=== PATIENT | male | born 1950 | race Hispanic/Latino ===

== ENCOUNTER 2022-02-10 11:19 | Emergency (ER) | payer MEDICARE ==
[~2022-02-10] VITALS: Ht 172.7 cm; Wt 117.9 kg
[2022-02-10 12:10] LABS: BASOPHILS # (AUTO) 0.1 (0.0-0.1); BASOPHILS % 0.7 % (0.0-1.0); EOSINOPHILS # (AUTO) 0.3 (0.0-0.4); EOSINOPHILS % 3.5 % (0.0-6.0); HEMATOCRIT 39.4 % (38.2-49.6); HEMOGLOBIN 12.9 g/dL (14.0-18.0); LYMPHOCYTES # (AUTO) 1.4 (1.0-3.2); LYMPHOCYTES % 19.8 % (18.0-39.1); MEAN CORPUSCULAR HEMOGLOBIN 28.9 pg (28-32); MEAN CORPUSCULAR HGB CONC 32.7 g/dL (31-35); MEAN CORPUSCULAR VOLUME 88.3 fL (81-99); MONOCYTES # (AUTO) 0.5 (0.2-0.8); MONOCYTES % 6.8 % (4.4-11.3); NEUTROPHILS % 68.8 % (38.7-80.0); PLATELET COUNT 168 x10e3/uL (140-360); RED BLOOD COUNT 4.46 x10e6/uL (4.3-5.7); RED CELL DISTRIBUTION WIDTH 13.6 % (11.7-14.4)
[2022-02-10 12:29] LABS: INR 0.98; PROTHROMBIN TIME 13.9 seconds (11.9-14.5)
[2022-02-10 12:30] LABS: PARTIAL THROMBOPLASTIN TIME 30.4 seconds (23.8-35.5)
[2022-02-10 12:38] LABS: ALBUMIN 3.5 g/dL (3.5-5.0); ANION GAP 15.8 mmol/L (8-16); CALCIUM 9.3 mg/dL (8.4-10.2); CREATININE, SERUM 0.94 mg/dL (0.72-1.25); POTASSIUM 3.8 mmol/L (3.5-5.1)
[2022-02-10] MEDS ORDERED: ALBUTEROL/IPRATROPIUM 3 ML NEB NEB ONE (12:45)
[2022-02-10] MEDS ORDERED: METHYLPREDNISOLONE SOD SUCC 125 MG/2ML VIAL IV ONE (12:45)
[2022-02-10 13:12] LABS: CLARITY,URINE CLEAR (CLEAR); COLOR,URINE YELLOW (YELLOW)
[2022-02-10 13:13] LABS: KETONES,URINE NEGATIVE (NEGATIVE); LEUKOCYTE ESTERASE ,URINE NEGATIVE (NEGATIVE); NITRITE,URINE NEGATIVE (NEGATIVE); PROTEIN,URINE DIPSTICK NEGATIVE (NEGATIVE); URINE UROBILINOGEN 0.2 mg/dL (0.2 - 1)
[2022-02-10 13:20] LABS: MUCUS,URINE MODERATE (RARE); RBC,URINE 0-5 /HPF (0-5); WBC,URINE (MAN) 0-5 /HPF (0-5)
[2022-02-10] MEDS ORDERED: ALBUTEROL SULF 0.083% NEB SOLN 3 ML NEB NEB STA (14:30)
[2022-02-10] MEDS ORDERED: DOXYCYCLINE HY100 M3 PO (14:35)
[2022-02-10] MEDS ORDERED: AEROECLIPSE II1 EACH PEG (14:35)
[2022-02-10] MEDS ORDERED: BENZONATATE200 MG PO (14:35)
[2022-02-10] MEDS ORDERED: PREDNISONE50 MG PO (14:35)
[2022-02-10] MEDS ORDERED: ALBUTEROL2.5 MG/3 M PO (14:35)
[2022-02-10] MEDS ORDERED: ALBUTEROL/IPRATROPIUM 3 ML NEB ONE (14:43)
[2022-02-10 14:45] VITALS: BP 133/69
== END 2022-02-10 14:49 | disposition home or self-care (01) ==
LOC: ER 11:30
DX: R05.9 Cough, unspecified (principal); J40 Bronchitis, not specified as acute or chronic; E11.65 Type 2 diabetes mellitus with hyperglycemia; I10 Essential (primary) hypertension; I45.10 Unspecified right bundle-branch block; E78.5 Hyperlipidemia, unspecified; Z20.822 Contact with and (suspected) exposure to COVID-19
CPT/HCPCS: 36415; 71045; 80053; 81001; 82550; 82553; 83880; 84484; 85025; 85610; 85730; 93005; 99284; J2930; U0002

== ENCOUNTER 2022-09-03 13:45 | Emergency (ER) | payer MEDICARE ==
[~2022-09-03] VITALS: Ht 172.7 cm; Wt 122.5 kg
[~2022-09-03 13:45] MED LIST: AEROECLIPSE II1 EACH PEG; ALBUTEROL2.5 MG/3 M PO; BENZONATATE200 MG PO; DOXYCYCLINE HY100 M3 PO; PREDNISONE50 MG PO
[2022-09-03 14:20] LABS: STREPTOCOCCUS GRP A ANTIGEN NEGATIVE (NEGATIVE)
[2022-09-03 15:00] LABS: INFLUENZAE A&B ANTIGEN (RAPID) POSITIVE FLU A (NEGATIVE)
[2022-09-03] MEDS ORDERED: TAMIFLU75 MG PO (16:06)
== END 2022-09-03 16:18 | disposition home or self-care (01) ==
LOC: ER 14:17
DX: R05.9 Cough, unspecified (principal); J10.1 Influenza due to other identified influenza virus with other respiratory manifestations; I10 Essential (primary) hypertension; E11.9 Type 2 diabetes mellitus without complications; E78.5 Hyperlipidemia, unspecified; Z20.822 Contact with and (suspected) exposure to COVID-19
CPT/HCPCS: 71045; 83518; 87070; 87400; 99283; U0002

== ENCOUNTER 2023-12-08 09:02 | Emergency (ER) | payer MEDICARE ==
[~2023-12-08] VITALS: Ht 172.7 cm; Wt 117.9 kg
[~2023-12-08 09:02] MED LIST changes: +TAMIFLU75 MG PO
[2023-12-08] MEDS ORDERED: ACETAMINOPHEN 325 MG TAB PO ONE (10:15)
[2023-12-08] MEDS ORDERED: ACETAMINOPHEN 325 MG TAB ONE (10:15)
[2023-12-08 11:18] VITALS: BP 158/79; PULSE 63; RESP 17; O2SAT 98
== END 2023-12-08 11:21 | disposition home or self-care (01) ==
LOC: FSED 09:06
DX: R51.9 Headache, unspecified (principal); I10 Essential (primary) hypertension; E11.9 Type 2 diabetes mellitus without complications; E78.5 Hyperlipidemia, unspecified; Z11.52 Encounter for screening for COVID-19
CPT/HCPCS: 0223U; 70450; 80053; 82553; 84484; 85025; 99284; 93005

== ENCOUNTER 2024-06-13 14:57 | Emergency (ER) | payer MEDICARE ==
[~2024-06-13] VITALS: Ht 172.7 cm; Wt 106.6 kg
[~2024-06-13 14:57] MED LIST changes: +BACLOFEN10 MG PO; +SALONPAS PATCH1 EAC1 TD
[2024-06-13 17:22] LABS: BASOPHILS % 0.4 % (0.0-1.0); EOSINOPHILS # (AUTO) 0.1 (0.0-0.4); EOSINOPHILS % 1.9 % (0.0-6.0); HEMATOCRIT 30.3 % (38.2-49.6); HEMOGLOBIN 9.8 g/dL (14.0-18.0); LYMPHOCYTES # (AUTO) 0.7 (1.0-3.2); LYMPHOCYTES % 14.2 % (18.0-39.1); MEAN CORPUSCULAR HEMOGLOBIN 30.5 pg (28-32); MEAN CORPUSCULAR HGB CONC 32.3 g/dL (31-35); MEAN CORPUSCULAR VOLUME 94.4 fL (81-99); MONOCYTES # (AUTO) 0.4 (0.2-0.8); MONOCYTES % 8.2 % (4.4-11.3); NEUTROPHILS # (AUTO) 3.5 (2.1-6.9); NEUTROPHILS % 74.7 % (38.7-80.0); PLATELET COUNT 149 x10e3/uL (140-360); RED BLOOD COUNT 3.21 x10e6/uL (4.3-5.7); RED CELL DISTRIBUTION WIDTH 12.3 % (11.7-14.4); WHITE BLOOD COUNT 4.73 x10e3/uL (4.8-10.8)
[2024-06-13 17:44] LABS: ALBUMIN 3.4 g/dL (3.5-5.0); ALBUMIN/GLOBULIN RATIO 1.2 (0.8-2.0); ANION GAP 18.1 mmol/L (8-16); BILIRUBIN,TOTAL 0.5 mg/dL (0.2-1.2); CREATININE, SERUM 1.44 mg/dL (0.72-1.25); TOTAL PROTEIN 6.2 g/dL (6.5-8.1)
[2024-06-13 17:45] LABS: POTASSIUM 3.1 mmol/L (3.5-5.1)
[2024-06-13] MEDS ORDERED: SODIUM CHLORIDE 0.9% 100 ML ONE (17:56)
[2024-06-13] MEDS ORDERED: IOPAMIDOL 370 MG/ML 100 ML INFUS..BTL INJ ONE (17:56)
[2024-06-13 21:26] VITALS: TEMP 98.4
[2024-06-13 22:00] VITALS: PULSE 59; RESP 17; O2SAT 97
== END 2024-06-13 22:40 | disposition other institution (70) ==
LOC: ER 15:13
DX: K92.2 Gastrointestinal hemorrhage, unspecified (principal); R19.7 Diarrhea, unspecified; R11.0 Nausea; I10 Essential (primary) hypertension; E11.40 Type 2 diabetes mellitus with diabetic neuropathy, unspecified; E78.5 Hyperlipidemia, unspecified
CPT/HCPCS: 36415; 74174; 80053; 85025; 86850; 86900; 99284; J2470; J7050; Q9967